=== PATIENT | male | born 1960 | race Two or more races ===

== ENCOUNTER 2017-12-21 09:51 | Inpatient (IN) | payer MEDICARE ==
[~2017-12-21] VITALS: Ht 162.6 cm; Wt 77.1 kg
[~2017-12-21 09:51] MED LIST: AMLO10TA2 PO; ASPI81TA27 PO; ATOR40TA52 PO; CARV12.544 PO; CINA30TA2 PO; CLON0.1T PO; CLOP75TA28 PO; DIPH25CA6 PO; FOLI1TAB6 PO; ISO60SRT PO; METH500T6 PO; NITR0.4S29 SL; SEVE800T8 PO
[2017-12-21] MEDS ORDERED: IODIXANOL 320MG/ML 100ML BTL IV ONE ×5 (11:04→13:59)
[2017-12-21] MEDS ORDERED: diphenhdrAMINE HCL 50 MG/1 ML VL ONE ×2 (11:05→12:35)
[2017-12-21] MEDS ORDERED: FAMOTIDINE (10MG/ML) 2ML VL IV ONE (11:05)
[2017-12-21] MEDS ORDERED: fentaNYL CITRATE 100 MCG/2 ML VL ONE ×2 (11:06→12:34)
[2017-12-21] MEDS ORDERED: LIDOCAINE 2%HCL (LOCAL ANESTH.) INJ 20ML MDV ONE (11:06)
[2017-12-21] MEDS ORDERED: MIDAZOLAM HCL 1MG/1ML-2 ML VIAL ONE ×2 (11:07→12:34)
[2017-12-21] MEDS ORDERED: methylPREDNISolone SOD SUCC 125 MG/2 ML VL ONE (11:08)
[2017-12-21] MEDS ORDERED: SODIUM CHL 0.9% 50 ML ONE (12:31)
[2017-12-21] MEDS ORDERED: ANGIOMAX 250 MG VIAL IV ONE (12:31)
[2017-12-21] MEDS ORDERED: SODIUM CHLORIDE 0.9% 1,000 ML IV SCH (14:22)
[2017-12-21] MEDS ORDERED: NITROGLYCERIN 0.4 MG SL TAB SL PRN ×2 (14:30→14:45)
[2017-12-21] MEDS ORDERED: ZOLPIDEM TARTRATE 5 MG TAB PO PRN (14:30)
[2017-12-21] MEDS ORDERED: ACETAMINOPHEN 500 MG TAB PO PRN (14:30)
[2017-12-21] MEDS ORDERED: HYDROcodone-ACET 10/325MG TAB PO PRN (14:30)
[2017-12-21] MEDS ORDERED: ONDANSETRON HCL 4 MG/2 ML VIAL IV PRN (14:30)
[2017-12-21] MEDS ORDERED: MORPHINE SULF INJ 2 MG/ML SYRINGE 1ML ONE (14:40)
[2017-12-21] MEDS ORDERED: diphenhdrAMINE HCL 25 MG CAP PO PRN (14:45)
[2017-12-21] MEDS ORDERED: METHOCARBAMOL 500 MG TAB PO PRN (14:45)
[2017-12-21] MEDS ORDERED: cloNIDine HCL 0.1 MG TAB PO PRN (14:45)
[2017-12-21] MEDS: MORPHINE SULFATE 4 MG/ML SYR/VIAL IV PRN (17:35)
[2017-12-21] MEDS: SEVELAMER 800 MG TAB PO SCH (17:37)
[2017-12-21] MEDS: ATORVASTATIN 20 MG TAB PO SCH (21:40)
[2017-12-21] MEDS: CARVEDILOL 12.5 MG TAB PO SCH (21:40)
[2017-12-21 22:00] VITALS: BP 149/65
[2017-12-22 05:00] VITALS: BP 140/70
[2017-12-22 06:35] LABS: BUN/Creatinine Ratio 4.8; Calcium 8.2 mg/dL (8.5-10.1)
[2017-12-22 07:26] LABS: Potassium 5.7 mmol/L (3.5-5.1)
[2017-12-22] MEDS: MORPHINE SULFATE 4 MG/ML SYR/VIAL IV PRN ×2 (07:59→08:51)
[2017-12-22] MEDS: SEVELAMER 800 MG TAB PO SCH ×3 (08:44→18:00)
[2017-12-22] MEDS ORDERED: HYDROcodone-ACET 5/325MG TAB PO PRN (08:45)
[2017-12-22] MEDS: guaiFENesin-DM 100/10mg/5ml SYR GT PRN ×2 (08:51→20:02)
[2017-12-22 09:00] VITALS: BP 154/84
[2017-12-22 09:10] LABS: Basophils # (auto) 0.1 uL; Basophils % (auto) 1.8 % (0.0-2.0); Eosinophils # (auto) 0 uL; Hematocrit 44.4 % (41.0-53.0); Hemoglobin 14.1 g/dL (13.5-17.5); Lymphocytes # (auto) 0.3 uL; Lymphocytes % (auto) 3.9 % (10.0-50.0); Mean Corpuscular Hemoglobin 28.4 pg (28.0-32.0); Mean Corpuscular Hgb Conc. 31.8 g/dL (32.0-36.0); Mean Corpuscular Volume 89.2 fL (80.0-100.0); Monocytes # (auto) 0.3 uL; Monocytes % (auto) 4.4 % (0.0-12.0); Neutrophils # (auto) 6.5 uL; Neutrophils % (auto) 89.9 % (37.0-80.0); Nucleated Red Blood Cells % 0.3 %; Platelet Count (auto) 145 10^3/uL (140-450); Red Blood Cells 4.97 10^6/uL (4.5-5.90); Red Cell Distribution Width 22.8 % (11.8-14.3); White Blood Cell 7.3 10^3/uL (4.4-10.8)
[2017-12-22] MEDS: FOLIC ACID 1 MG TAB PO SCH (10:23)
[2017-12-22] MEDS: CLOPIDOGREL BISULFATE 75 MG TAB PO SCH (10:23)
[2017-12-22] MEDS: ASPirin-EC 81 mg tab PO SCH (10:23)
[2017-12-22] MEDS: CARVEDILOL 12.5 MG TAB PO SCH ×2 (10:23→23:23)
[2017-12-22] MEDS: ISOSORBIDE MONONITRATE 60 MG TAB PO SCH (10:23)
[2017-12-22] MEDS: amLODIPine BESYLATE 5 MG TAB PO SCH (10:24)
[2017-12-22] MEDS: CINACALCET HYDROCHLORIDE 30 MG TAB PO SCH (11:56)
[2017-12-22 13:00] VITALS: BP 140/72
[2017-12-22 17:19] VITALS: BP 134/68
[2017-12-22] MEDS ORDERED: SODIUM CHL 0.9% 1000 ML BAG XX ONE (19:00)
[2017-12-22] MEDS ORDERED: diphenhdrAMINE HCL 50 MG/1 ML VL IV ONE (19:30)
[2017-12-22] MEDS ORDERED: HEPARIN SODIUM (PORCINE) 5000 UNITS/ML 1ML VIAL ONE (20:01)
[2017-12-22 22:00] VITALS: BP 129/72
[2017-12-22] MEDS: RANOLAZINE ER 500 MG TAB PO SCH (23:23)
[2017-12-22] MEDS: ATORVASTATIN 20 MG TAB PO SCH (23:23)
[2017-12-23] MEDS: guaiFENesin-DM 100/10mg/5ml SYR GT PRN ×3 (00:08→10:13)
[2017-12-23 05:00] VITALS: BP 108/71
[2017-12-23 07:30] VITALS: BP 142/70
[2017-12-23] MEDS: SEVELAMER 800 MG TAB PO SCH ×3 (08:00→18:00)
[2017-12-23 09:00] VITALS: BP 142/70
[2017-12-23] MEDS: ISOSORBIDE MONONITRATE 60 MG TAB PO SCH (09:58)
[2017-12-23] MEDS: FOLIC ACID 1 MG TAB PO SCH (09:59)
[2017-12-23] MEDS: amLODIPine BESYLATE 5 MG TAB PO SCH (09:59)
[2017-12-23] MEDS: CLOPIDOGREL BISULFATE 75 MG TAB PO SCH (09:59)
[2017-12-23] MEDS: ASPirin-EC 81 mg tab PO SCH (10:00)
[2017-12-23] MEDS: CARVEDILOL 12.5 MG TAB PO SCH (10:00)
[2017-12-23] MEDS: RANOLAZINE ER 500 MG TAB PO SCH (10:13)
[2017-12-23] MEDS: CINACALCET HYDROCHLORIDE 30 MG TAB PO SCH (10:13)
[2017-12-23 13:00] VITALS: BP 119/67
[2017-12-23 15:20] VITALS: BP 142/70
[2017-12-23 17:15] VITALS: BP 123/67
[2017-12-23] MEDS ORDERED: guaiFENesin-DM 100/10mg/5ml SYR PO PRN (17:15)
== END 2017-12-23 19:00 | disposition home or self-care (01) | DRG 250 ==
LOC: CATH 09:51 → TELE-WESTW 09:52
PROVIDERS: ADMIT Internal Medicine Cardiovascular Disease; ATTEND Internal Medicine Cardiovascular Disease
PROC: 5A1D70Z Performance of Urinary Filtration, Intermittent, Less than 6 Hours Per Day (ICD-10-PCS; principal; 2017-12-22)
PROC: 02703ZZ Dilation of Coronary Artery, One Artery, Percutaneous Approach (ICD-10-PCS; 2017-12-22)
PROC: 4A023N7 Measurement of Cardiac Sampling and Pressure, Left Heart, Percutaneous Approach (ICD-10-PCS; 2017-12-22)
PROC: B2111ZZ Fluoroscopy of Multiple Coronary Arteries using Low Osmolar Contrast (ICD-10-PCS; 2017-12-22)
DX: T82.855A Stenosis of coronary artery stent, initial encounter (principal); N18.6 End stage renal disease; I13.2 Hypertensive heart and chronic kidney disease with heart failure and with stage 5 chronic kidney disease, or end stage renal disease; E87.5 Hyperkalemia; I25.110 Atherosclerotic heart disease of native coronary artery with unstable angina pectoris; I50.9 Heart failure, unspecified; B18.2 Chronic viral hepatitis C; I08.0 Rheumatic disorders of both mitral and aortic valves; F17.210 Nicotine dependence, cigarettes, uncomplicated; E78.5 Hyperlipidemia, unspecified; E78.00 Pure hypercholesterolemia, unspecified; Y83.8 Other surgical procedures as the cause of abnormal reaction of the patient, or of later complication, without mention of misadventure at the time of the procedure; Z79.899 Other long term (current) drug therapy; Z79.82 Long term (current) use of aspirin; Z88.5 Allergy status to narcotic agent; Z91.041 Radiographic dye allergy status; Z82.49 Family history of ischemic heart disease and other diseases of the circulatory system; Z83.3 Family history of diabetes mellitus; Y92.89 Other specified places as the place of occurrence of the external cause
CPT/HCPCS: 36415; 71045; 80048; 85025; 87081; 90935; 92920; 93005; 93306; 93458; 99152; J2250; J3490; Q9967